=== PATIENT | female | born 1965 | race Caucasian/White ===

== ENCOUNTER 2017-05-04 22:10 | Emergency (ER) | payer SELFPAY ==
--- NOTE | 2017-05-04 23:56 | ERNOTE ---
Headache ER HPI - General Presenting Symptoms: headache, "migraine" Time Seen by Provider: 05/04/17 23:55 Source: patient Exam Limitations: no limitations - Immun/Allergies/Home Medications Immunizations: IMMUNIZATION HX Immunizations Up to Date Yes History of Influenza Vaccine No Allergies/Adverse Reactions: Allergies No Known Allergies Allergy (Unverified 05/04/17 22:23) Home Medications: HOME MEDICATIONS Naratriptan HCl 1 mg PO Q4H #9 tablet 05/05/17 [Last Taken Unknown] - History of Present Illness Narrative: Patient complains of a migraine headache. She is laid off of work at this time, and has not been to her physician or gotten her migraine medication refilled in a long time. She was taking Amerge for her migraine headaches. She is accompanied by her sister. Timing of Headache: gradual Context Headache: Present: new onset Quality: Present: achy, pressure, throbbing Severity Maximum: Present: severe Severity-Currently: Present: severe Headache frequency: Present: frequent headaches, chronic headaches, similar to previous headache Modifying Factors - (Improves): Reports: medication Modifying Factors - (Worsens): Reports: movement, exposure to light Associated Symptoms: Reports: denies symptoms Exacerbated by:: Reports: light, noise, movement, position Review of Systems - Review of Systems Constitutional: Absent: recent illness, fever, chills EYE: Present: eye pain. Absent: eye discharge, blurred vision, tearing ENT: Absent: ear pain, sore throat Respiratory: Absent: shortness of breath, cough Cardiology: Absent: chest pain, palpitations Gastrointestinal/Abdominal: Absent: nausea, vomiting, diarrhea, constipation, abdominal pain Genitourinary: Absent: frequency, pain, dysuria, hematuria Musculoskeletal: Absent: back pain, muscle pain, muscle stiffness, neck pain, joint pain Skin: Present: no symptoms reported Neurological: Present: headache Endocrine: Present: no symptoms reported Hematologic/Lymphatic: Present: no symptoms reported Psych: Present: depressed - Patient's Past Medical History Patient History - Medical: Migraines Patient History - Cardiac/Respiratory: No pertinent hx Patient History - Cancer: No Hx of Cancer Patient History - Surgical Procedures: - Social History Living Situations: home Psych History: No pertinent hx Smoking Status: Current every day smoker Alcohol Use: none Drug Use: none - Immunizations Immunizations Up to Date: Yes History of Influenza Vaccine: No Physical Exam - Physical Exam General Appearance: Present: wd/wn, alert, mild distress Head Exam: Present: normal inspection, no evidence of injury Eye Exam: Normal inspection: bilateral, PERRL: bilateral, EOMI: bilateral Ears, Nose, Throat: Present: normal ENT inspection, normal pharynx Neck: Present: normal inspection, nontender Respiratory: Present: no respiratory distress, normal breath sounds, no accessory muscle use, chest nontender, lungs clear Cardiovascular/Chest: Present: regular rate, rhythm, no murmur, normal peripheral pulses Gastrointestinal/Abdominal: Present: normal bowel sounds, nontender, nondistended, soft Back Exam: Present: normal inspection, normal range of motion Extremity Exam: Present: normal inspection, non-tender, normal range of motion, no edema Neurological Exam: Present: alert, oriented, normal mood/affect, no motor/ sensory deficits Skin Exam: Present: normal color, warm/dry ED Progress - Vital Signs Patient's Vital Signs:: I have reviewed the patient's vital signs. Vital Signs: Vital Signs 05/04/17 22:20 Temperature 36.9 C Pulse Rate 83 Respiratory 18 Rate Blood Pressure 133/83 O2 Sat by Pulse 99 Oximetry - Progress/Reassessment Chief Complaint: Headache Progress Note-Subjective: 05/05/17 06:30 Toradol 60 mg IM Benadryl 50 mg IM Phenergan 25 mg IM Departure Clinical Impression: Migraine headache without aura Qualifiers: Status migrainosus presence: with status migrainosus Intractability: intractable Qualified Code(s): G43.011 - Migraine without aura, intractable, with status migrainosus - Departure Disposition: Home self-care Condition: Good Instructions: Recurrent Migraine Headache Referrals: Family Practice [Provider Group] (3-5 days, sooner if no improvement) Prescriptions: Naratriptan HCl 1 mg PO Q4H #9 tablet
[2017-05-05] MEDS ORDERED: PROMETHAZINE HCL 25 MG/ML AMPUL IM ONE (00:02)
[2017-05-05] MEDS ORDERED: diphenhydrAMINE HCL 50 MG/ML VIAL IM ONE (00:02)
[2017-05-05] MEDS ORDERED: KETOROLAC TROMETHAMINE 60 MG/2 ML VIAL IM ONE ×2 (00:02→00:04)
[2017-05-05] MEDS ORDERED: diphenhydrAMINE HCL 50 MG/ML VIAL ONE (00:04)
[2017-05-05] MEDS ORDERED: PROMETHAZINE HCL 25 MG/ML AMPUL ONE (00:05)
[2017-05-05 01:23] VITALS: BP 132/84
== END 2017-05-05 00:31 | disposition home or self-care (01) ==
LOC: ER 22:10
DX: G43.011 Migraine without aura, intractable, with status migrainosus (principal)